=== PATIENT | male | born 1965 | race Caucasian/White ===

== ENCOUNTER 2019-04-02 12:24 | Emergency (ER) | payer OTHER ==
--- NOTE | 2019-04-02 13:09 | ER ---
Nurse's Notes [facility] Name: Rasta Guajardo Age: 54 yrs Sex: Male : 1965 Arrival Date: 04/02/2019 Time: 12:29 Bed 19 Private MD: Diagnosis: Zoster [herpes zoster] Presentation: 04/02 12:38 Presenting complaint: Patient states: rash to the right upper thigh and RLQ, "I think I sv have shingles, it feels like someone is ripping my skin off.". Transition of care: patient was not received from another setting of care. Onset of symptoms was March 31, 2019. Initial Sepsis Screen: Does the patient meet any 2 criteria? No. Patient's initial sepsis screen is negative. Does the patient have a suspected source of infection? No. Patient's initial sepsis screen is negative. Care prior to arrival: None. 12:38 Method Of Arrival: Ambulatory sv 12:38 Acuity: KIRILL 5 sv 13:00 Risk Assessment: Do you want to hurt yourself or someone else? Patient reports no em desire to harm self or others. Historical: - Allergies: 12:40 No Known Allergies; sv - PMHx: 12:40 Diabetes - NIDDM; sv - PSHx: 12:40 shoulder; right leg; sv - Immunization history:: Adult Immunizations up to date. - Social history:: Smoking status: Patient/guardian denies using tobacco. - Ebola Screening: : No symptoms or risks identified at this time. Screenin:00 Abuse screen: Denies threats or abuse. Nutritional screening: No deficits noted. em Tuberculosis screening: No symptoms or risk factors identified. Fall Risk None identified. Assessment: 13:00 General: Appears in no apparent distress. uncomfortable, Behavior is calm, cooperative. em Pain: Complains of pain in pelvis and right leg Pain currently is 7 out of 10 on a pain scale. Quality of pain is described as sharp. Neuro: Level of Consciousness is awake, alert, obeys commands, Oriented to person, place, time, situation. Cardiovascular: Capillary refill < 3 seconds Patient's skin is warm and dry. Respiratory: Airway is patent Respiratory effort is even, unlabored, Respiratory pattern is regular, symmetrical. Derm: Rash noted that is raised, vesicular, on pelvis and right leg. Musculoskeletal: Capillary refill < 3 seconds, Range of motion: intact in all extremities. Vital Signs: 12:40 BP 128 / 82; Pulse 66; Resp 20; Temp 97.9; Pulse Ox 100% ; Weight 94.35 kg; Height 6 sv ft. 0 in. (182.88 cm); Pain 7/10; 12:40 Body Mass Index 28.21 (94.35 kg, 182.88 cm) sv ED Course: 12:29 Patient arrived in ED. as 12:39 Triage completed. sv 12:40 Arm band placed on. sv 12:52 Cassidy Weaver FNP is PHCP. nh 12:52 Wesley Mack MD is Attending Physician. nh 13:00 Patient has correct armband on for positive identification. Bed in low position. Call em light in reach. 13:00 No provider procedures requiring assistance completed. Patient did not have IV access em during this emergency room visit. 13:03 Jonathon Simpson LVN is Primary Nurse. em Administered Medications: No medications were administered Outcome: 13:08 Discharge ordered by MD. hi 13:16 Discharged to home ambulatory. em 13:16 Condition: good 13:16 Discharge instructions given to patient, Instructed on discharge instructions, follow up and referral plans. medication usage, Demonstrated understanding of instructions, follow-up care, medications, Prescriptions given X 2. 13:19 Patient left the ED. em Signatures: Desi Funez, RN RN Cassidy Weaver FNP FNP hi Jonathon Simpson LVN LVN em Loreta Bautista as
--- NOTE | 2019-04-02 13:09 | EDPHYS ---
Physician Documentation [facility] Name: Rasta Guajardo Age: 54 yrs Sex: Male : 1965 Arrival Date: 04/02/2019 Time: 12:29 Bed 19 Private MD: ED Physician Wesley Mack HPI: 04/02 13:06 This 54 yrs old Male presents to ER via Ambulatory with complaints of Rash. nh 13:06 The patient's rash thought to be caused by an unknown cause. The rash is located on the ia right leg. The rash can be described as vesicular. Onset: The symptoms/episode began/occurred 5 day(s) ago. Associated signs and symptoms:. Severity of symptoms: At their worst the symptoms were moderate just prior to arrival, in the emergency department the symptoms are unchanged. The patient has not experienced similar symptoms in the past. The patient has not recently seen a physician. Historical: - Allergies: 12:40 No Known Allergies; sv - PMHx: 12:40 Diabetes - NIDDM; sv - PSHx: 12:40 shoulder; right leg; sv - Immunization history:: Adult Immunizations up to date. - Social history:: Smoking status: Patient/guardian denies using tobacco. - Ebola Screening: : No symptoms or risks identified at this time. ROS: 13:06 Constitutional: Negative for fever, chills, and weight loss, Eyes: Negative for injury, nh pain, redness, and discharge, ENT: Negative for injury, pain, and discharge, Neck: Negative for injury, pain, and swelling, Cardiovascular: Negative for chest pain, palpitations, and edema, Respiratory: Negative for shortness of breath, cough, wheezing, and pleuritic chest pain, Abdomen/GI: Negative for abdominal pain, nausea, vomiting, diarrhea, and constipation, Back: Negative for injury and pain, : Negative for injury, bleeding, discharge, and swelling, MS/Extremity: Negative for injury and deformity, Neuro: Negative for headache, weakness, numbness, tingling, and seizure, Psych: Negative for depression, anxiety, suicide ideation, homicidal ideation, and hallucinations, Allergy/Immunology: Negative for hives, rash, and allergies, Endocrine: Negative for neck swelling, polydipsia, polyuria, polyphagia, and marked weight changes, Hematologic/Lymphatic: Negative for swollen nodes, abnormal bleeding, and unusual bruising. 13:06 Skin: Positive for rash. Exam: 13:06 Constitutional: This is a well developed, well nourished patient who is awake, alert, nh and in no acute distress. Head/Face: Normocephalic, atraumatic. Eyes: Pupils equal round and reactive to light, extra-ocular motions intact. Lids and lashes normal. Conjunctiva and sclera are non-icteric and not injected. Cornea within normal limits. Periorbital areas with no swelling, redness, or edema. ENT: Nares patent. No nasal discharge, no septal abnormalities noted. Tympanic membranes are normal and external auditory canals are clear. Oropharynx with no redness, swelling, or masses, exudates, or evidence of obstruction, uvula midline. Mucous membranes moist. Neck: Trachea midline, no thyromegaly or masses palpated, and no cervical lymphadenopathy. Supple, full range of motion without nuchal rigidity, or vertebral point tenderness. No Meningismus. Chest/axilla: Normal chest wall appearance and motion. Nontender with no deformity. No lesions are appreciated. Cardiovascular: Regular rate and rhythm with a normal S1 and S2. No gallops, murmurs, or rubs. Normal PMI, no JVD. No pulse deficits. Respiratory: Lungs have equal breath sounds bilaterally, clear to auscultation and percussion. No rales, rhonchi or wheezes noted. No increased work of breathing, no retractions or nasal flaring. Abdomen/GI: Soft, non-tender, with normal bowel sounds. No distension or tympany. No guarding or rebound. No evidence of tenderness throughout. Back: No spinal tenderness. No costovertebral tenderness. Full range of motion. MS/ Extremity: Pulses equal, no cyanosis. Neurovascular intact. Full, normal range of motion. Neuro: Awake and alert, GCS 15, oriented to person, place, time, and situation. Cranial nerves II-XII grossly intact. Motor strength 5/5 in all extremities. Sensory grossly intact. Cerebellar exam normal. Normal gait. Psych: Awake, alert, with orientation to person, place and time. Behavior, mood, and affect are within normal limits. 13:06 Skin: zoster. Vital Signs: 12:40 BP 128 / 82; Pulse 66; Resp 20; Temp 97.9; Pulse Ox 100% ; Weight 94.35 kg; Height 6 sv ft. 0 in. (182.88 cm); Pain 7/10; 12:40 Body Mass Index 28.21 (94.35 kg, 182.88 cm) sv MDM: 12:52 Patient medically screened. ia 13:06 Data reviewed: vital signs, nurses notes, and as a result, I will discharge patient. ia Counseling: I had a detailed discussion with the patient and/or guardian regarding: the historical points, exam findings, and any diagnostic results supporting the discharge/admit diagnosis, the need for outpatient follow up, to return to the emergency department if symptoms worsen or persist or if there are any questions or concerns that arise at home. Administered Medications: No medications were administered Disposition: 04/02/19 13:08 Discharged to Home. Impression: Zoster [herpes zoster]. - Condition is Stable. - Discharge Instructions: Shingles. - Prescriptions for Tylenol- Codeine #3 300-30 mg Oral Tablet - take 2 tablet by ORAL route every 6 hours As needed; 30 tablet. Valtrex 1 g Oral Tablet - take 1 tablet by ORAL route every 8 hours for 7 days; 21 tablet. - Medication Reconciliation Form, Thank You Letter, Antibiotic Education, Prescription Opioid Use form. - Follow up: Private Physician; When: 2 - 3 days; Reason: Recheck today's complaints. - Problem is new. - Symptoms are unchanged. Addendum: 04/04/2019 06:39 Co-signature as Attending Physician, Wesley Mack MD I agree with the assessment and k dr plan of care. Signatures: Desi Funez RN RN Wesley Mack MD MD [email or web address] Cassidy Weaver, PHYSICAL TESTING SUPERVISOR PHYSICAL TESTING SUPERVISOR ia Jonathon Simpson, BEET FLUMER BEET FLUMER em Corrections: (The following items were deleted from the chart) 04/02 13:19 13:08 04/02/2019 13:08 Discharged to Home. Impression: Zoster [herpes zoster]. em Condition is Stable. Forms are Medication Reconciliation Form, Thank You Letter, Antibiotic Education, Prescription Opioid Use. Follow up: Private Physician; When: 2 - 3 days; Reason: Recheck today's complaints. Problem is new. Symptoms are unchanged. ia
== END 2019-04-02 13:19 | disposition home or self-care (01) ==
LOC: ER 12:24
DX: B02.9 Zoster without complications (principal); E11.9 Type 2 diabetes mellitus without complications
CPT/HCPCS: 99282